=== PATIENT | female | born 1965 | race Caucasian/White ===

== ENCOUNTER 2017-12-25 08:52 | Inpatient (IN) | payer OTHER ==
[2017-12-24 16:36] VITALS: BMI 23.0
[2017-12-25 11:33] LABS: #Basophils 0.1 thou/uL (0.0-0.2); #Eosinphils 0.1 thou/uL (0.0-0.7); #Lymphocytes 2.2 thou/uL (1.20-3.40); #Monocytes 0.5 thou/uL (0.11-0.59); #Neutrophils 3.7 thou/uL (1.40-6.50); %Basophils 1.9 % (0.0-1.0); %Eosinophils 1.3 % (0.0-10.0); %Lymphocytes 33.3 % (21.0-51.0); %Monocytes 7.7 % (0.0-10.0); %Neutrophils 55.8 % (42.0-75.0); Hemoglobin 13.1 g/dL (12.0-16.0); Mean Corpuscular HGB CONC 33.7 g/dL (32.0-36.0); Mean Corpuscular Hemoglobin 30.2 pg (27.0-31.0); Mean Corpuscular Volume 89.5 fL (78.0-98.0); Mean Platelet Volume 6.8 fL (7.4-10.4); Platelet Count 274 thou/uL (130-400); RBC Distribution Width 10.8 % (11.5-14.5); Red Blood Cell (RBC) Count 4.34 mill/uL (4.20-5.40); White Blood Cell (WBC) Count 6.5 thou/uL (4.8-10.8)
[2017-12-25] MEDS ORDERED: CEFAZOLIN/Water 2 GM/20 ML SYRINGE ONE (12:29)
[2017-12-25] MEDS ORDERED: Lidocaine 1% w/Epinephrine 1:100K 30 ML VIAL ONE (12:59)
[2017-12-25] MEDS ORDERED: Fentanyl 250 MCG/5 ML VIAL ONE (13:05)
[2017-12-25] MEDS ORDERED: Midazolam HCl 2 mg/2 ml Vial ONE (13:05)
[2017-12-25] MEDS ORDERED: Acetaminophen 325 MG TAB PO PRN (14:20)
[2017-12-25] MEDS ORDERED: Ondansetron HCl/PF 4 MG/2 ML Vial IVP PRN (14:20)
[2017-12-25] MEDS ORDERED: Simethicone Chewable 80 MG TAB PO PRN (14:20)
[2017-12-25] MEDS ORDERED: traMADol HCl 50 MG TAB PO PRN (14:20)
[2017-12-25] MEDS ORDERED: diphenhydrAMINE 25 MG CAP PO PRN (14:20)
[2017-12-25] MEDS ORDERED: Zolpidem Tartrate 5 MG TAB PO PRN (14:20)
--- NOTE | 2017-12-25 14:38 | OP ---
DATE OF PROCEDURE: 12/25/2017 PREOPERATIVE DIAGNOSIS: Symptomatic rectocele prior hysterectomy. POSTOPERATIVE DIAGNOSIS: Symptomatic rectocele prior hysterectomy. PROCEDURE PERFORMED: Posterior colporrhaphy. SURGEON: Maikol Cho M.D. GLASS ETCHER: Moraima Sanchez M.D. ANESTHESIA: General endotracheal. See [employer] notes for details. OPERATIVE FINDINGS: Included a grade III-IV rectocele with no enterocele, no cystocele. OPERATIVE COMPLICATIONS: None. BLOOD LOSS: Less than 50 mL. DRAINS: Cooley and Vag packs were the only drain or packs. PROCEDURE IN DETAIL: The patient was taken to the operating room where she had already been given 2 grams of Ancef and had SCDs placed. She was given a general anesthetic, placed in lithotomy position , prepped and draped, and a Cooley catheter was inserted in the urethra. The posterior fourchette of the vagina was grasped with two Allis clamps and the posterior floor of the vagina was injected with 0.5% Xylocaine with epinephrine, approximately 20 mL for hemostasis and hydrodissection cephalad towa rds the apex of the vagina in the midline. Moncada scissors and then Metzenbaum scissors were used to dissect the vaginal mucosa and create a space . The fascia was dissected off the dissected vaginal mucosa with Metzenbaum scissors and blunt disse ction. Small bleeding points were coagulated with 30 land coag power on the Bovie. The defect was closed with what little fascia she had in an interrupted 0 Vicryl or 0 Vicryl mattress style on the p osterior floor. The vaginal mucosa was closed attaching it to the fascia in a running lock 0 Vicryl suture down towards the middle portion of the lower third of the vagina where some extraneous vaginal mucosa was excised with the Moncada scissor. The remainder of the vaginal mucosa was then closed and then again closing the space. An interr upted suture of 0 Vicryl suture was used in one area, which was slightly and there was some coa gulation used on some bleeding points on the mucosa. Then, was used to check the rectum and there was no evidence of sutures or defects in the recta l vault. The vagina was packed with a wet Kerlix pack and the Cooley catheter was left in. She recei qiana Toradol before she left the operating room.
[2017-12-25] MEDS: Sodium Chloride 0.9% 1,000 ML IV SCH (17:24)
[2017-12-25] MEDS: Ketorolac Tromethamine 30 MG/ML VIAL IVP SCH (20:30)
[2017-12-25] MEDS ORDERED: Amitriptyline HCl 10 MG TAB PO SCH (21:00)
[2017-12-26] MEDS: Sodium Chloride 0.9% 1,000 ML IV SCH ×2 (00:17→03:59)
[2017-12-26] MEDS: Ketorolac Tromethamine 30 MG/ML VIAL IVP SCH ×2 (01:30→08:37)
[2017-12-26 05:31] LABS: Hemoglobin 12.4 g/dL (12.0-16.0); Mean Corpuscular HGB CONC 33.9 g/dL (32.0-36.0); Mean Corpuscular Hemoglobin 30.1 pg (27.0-31.0); Mean Corpuscular Volume 88.8 fL (78.0-98.0); Mean Platelet Volume 6.5 fL (7.4-10.4); Platelet Count 261 thou/uL (130-400); RBC Distribution Width 10.8 % (11.5-14.5); Red Blood Cell (RBC) Count 4.13 mill/uL (4.20-5.40); White Blood Cell (WBC) Count 9.6 thou/uL (4.8-10.8)
[2017-12-26 07:50] VITALS: BP 134/87; TEMP 98.2
[2017-12-26] MEDS ORDERED: FLUoxetine HCl 20 MG CAP PO SCH (09:00)
--- NOTE | 2017-12-26 20:34 | DIS ---
REASON FOR ADMISSION: Symptomatic rectocele prior hysterectomy and anterior repair. HOSPITAL COURSE: Basically, this is a 52-year-old multiparous [employer] inmate who had had a hy sterectomy remote from her visit with me back in April she had a pessary did not like it that she u sed for her rectocele. She did not have a cystocele and she wanted definitive treatment which was al lowed and she got approval and we did the procedure posterior colporrhaphy on 12/25/2017. This was d one under general anesthetic without any complications. Blood loss was less than 15 mL. Postoperati vely, she did well on the day after surgery, her pack was removed. Cooley catheter was removed. She was voiding well, ambulating well, tolerating general diet, had normal vital signs. Her hematocrit w as stable and she had no complaints. Her May-Pad had minimal spotting on it after her pack was justin qiana and there was no active bleeding noticed. Remainder of hospital labs were unremarkable. IMPRESSION AND FINAL DIAGNOSIS: Symptomatic rectocele, status post prior total vaginal hysterectomy with anterior repair and now 1 day status post posterior colporrhaphy doing well. PLAN: Discharge the patient back on her usual medicines of Prozac 20 mg a day and Naprosyn 500 mg b. i.d. for her arthritis. She will need to be on a stool softener nightly for at least the first 2 wee ks. She has a 2-week and 6 week postop followup visit with me and she has warnings and instructions as does the [employer] officials.
== END 2017-12-26 12:30 | DRG 748 ==
LOC: SURG A 10:17 → 3SW 16:06
PROVIDERS: ADMIT Obstetrics & Gynecology; ATTEND Obstetrics & Gynecology
PROC: 0JQC0ZZ Repair Pelvic Region Subcutaneous Tissue and Fascia, Open Approach (ICD-10-PCS; principal; 2017-12-25)
DX: N81.6 Rectocele (principal); M19.90 Unspecified osteoarthritis, unspecified site; F41.9 Anxiety disorder, unspecified; M54.2 Cervicalgia
CPT/HCPCS: 36415; 85025; 85027; 86850; 86900; 86901; A4216; J1885; J2001; J2250; J3010

== ENCOUNTER 2018-10-30 09:08 | Outpatient (CLI) | payer OTHER ==
--- NOTE | 2018-10-31 08:44 | MMO ---
Bilateral MAMMO Bilat Screen [facility]. CLINICAL HISTORY: Patient is 53 years old and is seen for screening. The patient has the following family history of breast cancer: maternal aunt and paternal aunt. The patient has no personal history of cancer. VIEWS: The views performed were: bilateral craniocaudal and bilateral mediolateral oblique. FILMS COMPARED: The present examination has been compared to prior imaging studies performed at [facility] on 10/27/2016, and at [facility] on 10/27/2015. This study has been interpreted with the assistance of computer-aided detection. MAMMOGRAM FINDINGS: The breasts are heterogeneously dense, which could obscure a lesion on mammography. Finding 1: There are stable benign appearing calcifications seen in the right breast. Finding 2: There are multiple stable equal density nodules of varying size with obscured margins seen in both breasts. There are no suspicious masses, suspicious calcifications, or new areas of architectural distortion. IMPRESSION: THERE IS NO MAMMOGRAPHIC EVIDENCE OF MALIGNANCY. A ROUTINE FOLLOW-UP MAMMOGRAM IN 1 YEAR IS RECOMMENDED. ACR BI-RADS Category 2 - Benign finding MAMMOGRAPHY NOTE: 1. A negative mammogram report should not delay a biopsy if a dominant of clinically suspicious mass is present. 2. Approximately 10% to 15% of breast cancers are not detected by mammography. 3. Adenosis and dense breasts may obscure an underlying neoplasm. Reported by: HILDA FREY MD Electonically Signed: [id number]
== END 2018-10-30 09:09 | disposition home or self-care (01) ==
LOC: SCSMAMMO 09:08
PROVIDERS: ATTEND Family Medicine
DX: Z12.31 Encounter for screening mammogram for malignant neoplasm of breast (principal); Z80.3 Family history of malignant neoplasm of breast
CPT/HCPCS: 77067